=== PATIENT | male | born 1980 | race American Indian/Alaskan Native ===

== ENCOUNTER 2019-04-16 11:28 | Day surgery (SDC) | payer OTHER ==
[2019-04-16 12:28] VITALS: BP 125/79
[2019-04-16] MEDS ORDERED: LIDOCAINE (1%) 10 MG/1 ML VIAL 20 ML MDV ONE (13:00)
[2019-04-16] MEDS ORDERED: BUPIVACAINE/PF (0.5%) 5 MG/1 ML 30 ML VIAL INFILTRATI ONE ×2 (13:00→13:23)
[2019-04-16] MEDS ORDERED: LIDOCAINE (1%) 10 MG/1 ML VIAL 20 ML MDV INFILTRATI ONE (13:23)
--- NOTE | 2019-04-16 13:35 | Procedure Note ---
Date of procedure: 04/16/19 Pre-op diagnosis: right shoulder pain Post-op diagnosis: same Procedure: Right lateral pectoral nerve block shoulder Procedure Patient was brought to the OR and placed on the OR table supine following routine prep and drape of the right shoulder the C-arm was brought in and the coracoid process was seen and visualized And the skin overlying this bony prominence was anesthetized with half percent lidocaine following this a 22- gauge spinal needle was used to visualize the coracoid process the needle was advanced until it came in contact with the bone Following this the lateral pectoral nerve was anesthetized with half percent Marcaine following this the spinal needle was removed the puncture wound was cleansed and a Band-Aid was applied to the area the patient tolerated the procedure there were no Occasions he was taken back to observation and discharged Anesthesia: local Surgeon: MARIE DUNBAR Pathology: none Condition: stable Disposition: observation
--- NOTE | 2019-04-16 14:31 | XRay Report ---
INTRAOPERATIVE FLUOROSCOPY: RIGHT SHOULDER INDICATION: RT SHOULDER PAIN. TECHNIQUE: Intraoperative spot images were obtained during the procedure. FINDINGS: Limited spot fluoroscopy demonstrates a needle injecting over the coracoid process. We see the proced ure report for further details. Fluoroscopy Time: 14 seconds. Fluoroscopy Images: 1. Signer Name: Edwardo Hunt MD Signed: 04/16/2019 2:27 PM Workstation Name: [email or web address]
== END 2019-04-16 13:35 | disposition home or self-care (01) ==
LOC: OR 11:28
PROVIDERS: ATTEND Orthopaedic Surgery
DX: M25.511 Pain in right shoulder (principal)